=== PATIENT | male | born 1955 | race Caucasian/White ===

== ENCOUNTER → 2017-11-03 | Outpatient (CLI) | payer MEDICARE ==
[2017-11-03 09:44] LABS: ALT 29 U/L (21-72); AST 19 U/L (17-59); Cholesterol 174 mg/dL (<200); HDL Cholesterol 42 mg/dL (40-60); LDL Cholesterol,Calculated 106 mg/dL (0-99); Triglycerides 129 mg/dL (<150)
== END | disposition home or self-care (01) ==
LOC: LABWHC1 08:54
PROVIDERS: ATTEND Internal Medicine Cardiovascular Disease
DX: E78.2 Mixed hyperlipidemia (principal)
CPT/HCPCS: 36415; 80061; 84450; 84460

== ENCOUNTER 2018-06-13 11:39 | Emergency (ER) | payer MEDICARE ==
--- NOTE | 2018-06-13 12:52 | XR ---
EXAMINATION TYPE: XR KUB , 2 VIEWS DATE OF EXAM ORDERED: 06/13/2018 HISTORY: abdominal pain. COMPARISON: None. FINDINGS: There has been a midline sternotomy. The lung bases are clear. Within the abdomen, the abdominal gas pattern is within normal limits. There is no evidence of obstru ction or free air. No unusual calcifications are seen. There are mild degenerative changes in the lum bar spine. IMPRESSION: NO ACUTE INTRA-ABDOMINAL ABNORMALITY.
--- NOTE | 2018-06-13 12:58 | ED ---
Abdominal Pain HPI - General Chief Complaint: Abdominal Pain Stated Complaint: abd pain Time Seen by Provider: 06/13/18 12:02 Source: patient Mode of arrival: ambulatory Limitations: no limitations - History of Present Illness Initial Comments: This is 62-year-old male past medical history of coronary artery disease, previous MD, CVA, previous cholecystectomy and appendectomy, ventral hernia presenting today for cc of abdominal pain, nausea 2 weeks. Pt states that two weeks ago he began experiencing pain in his abdomen he stated it feels diffuse, and is a stabbing pa in that he is able to ease in certain positions. Pt states that the pain is mostly epigastric and radiates to the back at time. Pt denies vomiting, diarrhea, fever, night sweats, testicular pain, chest pain, shortness of breath, dyspnea upon exertion, urgency, frequency, hematuria, hematemesis or melena, hematochezia or any other associated symptoms. BP elevated upon arrival pt stated that he has not taken his BP medications yet today. - Related Data Allergies Allergy/AdvReac Type Severity Reaction Status Date / Time No Known Allergies Allergy Verified 06/13/18 11:51 Review of Systems ROS Statement: Those systems with pertinent positive or pertinent negative responses have been documented in the HPI. ROS Other: All systems not noted in ROS Statement are negative. Constitutional: Denies: fever, chills, night sweats Eyes: Denies: eye pain ENT: Denies: ear pain, throat pain Respiratory: Denies: cough, dyspnea, wheezes, hemoptysis, stridor Cardiovascular: Denies: chest pain, palpitations, dyspnea on exertion, orthopnea , edema, syncope Endocrine: Denies: fatigue Gastrointestinal: Reports: abdominal pain, nausea. Denies: vomiting, diarrhea, constipation, hematemesis, melena, hematochezia Genitourinary: Denies: urgency, dysuria, frequency, hematuria, discharge, testicular pain, testicular mass Musculoskeletal: Reports: as per HPI Skin: Denies: rash, lesions Neurological: Denies: headache, weakness, numbness, paresthesias, confusion, abnormal gait, vertigo Past Medical History Past Medical History: Coronary Artery Disease (CAD), Chest Pain / Angina, CVA/ TIA, Hyperlipidemia, Myocardial Infarction ([place]) History of Any Multi-Drug Resistant Organisms: None Reported Past Surgical History: Appendectomy, Cholecystectomy, Coronary Bypass/CABG Past Psychological History: No Psychological Hx Reported Smoking Status: Former smoker Past Alcohol Use History: None Reported Past Drug Use History: None Reported General Exam - General Exam Comments Initial Comments: General: The patient is awake and alert, in no distress, and does not appear acutely ill. Eye: Pupils are equal, round and reactive to light, extra-ocular movements are intact. No nystagmus. There is normal conjunctiva bilaterally. No signs of icterus. Ears, nose, mouth and throat: There are moist mucous membranes and no oral lesions. Neck: The neck is supple, there is no tenderness or JVD. Cardiovascular: There is a regular rate and rhythm. No murmur, rub or gallop is appreciated. Respiratory: Lungs are clear to auscultation, respirations are non-labored, breath sounds are equal. No wheezes, stridor, rales, or rhonchi. Gastrointestinal: Large scar over the RUQ, and large scared verticle down chest. Soft, non-distended, abdomen without masses or organomegaly noted. There is tenderness to palpation over the epigastric region with deep palpation. No tenderness to palpation on the lower quadrants, RUQ, LUQ umbilical regions. There is no rebound or guarding present. No CVA tenderness. Bowel sounds are unremarkable. There is a reducible ventral hernia-no pain to palpation. Musculoskeletal: Normal ROM, no tenderness. Strength 5/5. Sensation intact. Pulses equal bilaterally 2+. Neurological: A&O x 3. CN II-XII intact, There are no obvious motor or sensory deficits. Coordination appears grossly intact. Speech is normal. Skin: Skin is warm and dry and no rashes or lesions are noted. No LE edema Psychiatric: Cooperative, appropriate mood & affect, normal judgment. Limitations: no limitations Course Vital Signs 06/13/18 06/13/18 06/13/18 11:49 12:50 15:00 Temperature 98.6 F Pulse Rate 90 70 80 Respiratory 20 18 18 Rate Blood Pressure 199/93 190/101 200/91 O2 Sat by Pulse 98 96 96 Oximetry 06/13/18 16:11 Temperature 98.2 F Pulse Rate 78 Respiratory 18 Rate Blood Pressure 194/88 O2 Sat by Pulse 98 Oximetry Medical Decision Making - Medical Decision Making No clinical signs of acute mesenteric ischemia, lactic acid (-). Lab as stated above, within acceptable limits. CT abdomen pelvic revealed benign abdomen however there were multiple right lower lung nodules noted with associated lymphadenopathy. CT reviewed by myself and Dr. Solorzano. Pt given morphine for pain mgmt, pt states that he no longer has pain upon multiple reevaluations. Pt was informed of the lung nodules and we discussed that there is a risk of malignancy. Pt verbalized understanding. Pt has an appointment with a new primary care provider and states that he will f/u for the lung nodules. Given pt cardiac history as epigastric pain. 2 EKG obtained 2 hours apart and reviewed by myself and Dr. Solorzano. There does not appear to be acute changes concerning for ACS. Troponin (-), pt denies any cardiac symptoms. At this time it is not clear the etiology of the pain, pt does have some constipation on KUB and CT which could be attributing to pain. Pt last bowel movment was 3 days ago. Digits rectal exam performed with PAI GOW DEALER in room, (-) [place], no stool ball palpable. At this time I feel pt is stable for d/c with f/u for pulmonary nodules and return to the ER for worsening symptoms. Pt BP elevated after administration pt stated that he is ready for d/c and will f/u with primary care provider for BP management. Case discussed at length with Dr. Solorzano. Pt d /c in stable condition. - Lab Data Result diagrams: 06/13/18 12:57 06/13/18 12:57 Lab Results 06/13/18 06/13/18 06/13/18 Range/Units 12:57 12:57 12:57 WBC 9.4 (3.8-10.6) k/uL RBC 5.22 (4.30-5.90) m/uL Hgb 14.2 (13.0-17.5) gm/dL Hct 45.2 (39.0-53.0) % MCV 86.4 (80.0-100.0) fL MCH 27.2 (25.0-35.0) pg MCHC 31.5 (31.0-37.0) g/dL RDW 13.3 (11.5-15.5) % Plt Count 276 (150-450) k/uL Neutrophils % 73 % Lymphocytes % 13 % Monocytes % 7 % Eosinophils % 4 % Basophils % 1 % Neutrophils # 6.9 (1.3-7.7) k/uL Lymphocytes # 1.2 (1.0-4.8) k/uL Monocytes # 0.7 (0-1.0) k/uL Eosinophils # 0.4 (0-0.7) k/uL Basophils # 0.1 (0-0.2) k/uL Sodium 139 (137-145) mmol/L Potassium 4.5 (3.5-5.1) mmol/L Chloride 101 (98-107) mmol/L Carbon Dioxide 27 (22-30) mmol/L Anion Gap 11 mmol/L BUN 17 (9-20) mg/dL Creatinine 0.79 (0.66-1.25) mg/dL Est GFR (CKD-EPI)AfAm >90 (>60 ml/min/1.73 sqM) Est GFR (CKD-EPI)NonAf >90 (>60 ml/min/1.73 sqM) Glucose 111 H (74-99) mg/dL Plasma Lactic Acid Moy 1.1 (0.7-2.0) mmol/L Calcium 10.6 H (8.4-10.2) mg/dL Total Bilirubin 1.0 (0.2-1.3) mg/dL AST 27 (17-59) U/L ALT 29 (21-72) U/L Alkaline Phosphatase 149 H (38-126) U/L Troponin I (0.000-0.034) ng/mL Total Protein 7.8 (6.3-8.2) g/dL Albumin 4.5 (3.5-5.0) g/dL Amylase 59 (30-110) U/L Lipase 159 (23-300) U/L Urine Color Urine Appearance (Clear) Urine pH (5.0-8.0) Ur Specific [place] (1.001-1.035) Urine Protein (Negative) Urine Glucose (UA) (Negative) Urine Ketones (Negative) Urine Blood (Negative) Urine Nitrite (Negative) Urine Bilirubin (Negative) Urine Urobilinogen (<2.0) mg/dL Ur Leukocyte Esterase (Negative) 06/13/18 06/13/18 Range/Units 12:57 13:04 WBC (3.8-10.6) k/uL RBC (4.30-5.90) m/uL Hgb (13.0-17.5) gm/dL Hct (39.0-53.0) % MCV (80.0-100.0) fL MCH (25.0-35.0) pg MCHC (31.0-37.0) g/dL RDW (11.5-15.5) % Plt Count (150-450) k/uL Neutrophils % % Lymphocytes % % Monocytes % % Eosinophils % % Basophils % % Neutrophils # (1.3-7.7) k/uL Lymphocytes # (1.0-4.8) k/uL Monocytes # (0-1.0) k/uL Eosinophils # (0-0.7) k/uL Basophils # (0-0.2) k/uL Sodium (137-145) mmol/L Potassium (3.5-5.1) mmol/L Chloride (98-107) mmol/L Carbon Dioxide (22-30) mmol/L Anion Gap mmol/L BUN (9-20) mg/dL Creatinine (0.66-1.25) mg/dL Est GFR (CKD-EPI)AfAm (>60 ml/min/1.73 sqM) Est GFR (CKD-EPI)NonAf (>60 ml/min/1.73 sqM) Glucose (74-99) mg/dL Plasma Lactic Acid Moy (0.7-2.0) mmol/L Calcium (8.4-10.2) mg/dL Total Bilirubin (0.2-1.3) mg/dL AST (17-59) U/L ALT (21-72) U/L Alkaline Phosphatase (38-126) U/L Troponin I 0.020 (0.000-0.034) ng/mL Total Protein (6.3-8.2) g/dL Albumin (3.5-5.0) g/dL Amylase (30-110) U/L Lipase (23-300) U/L Urine Color Light Yellow Urine Appearance Clear (Clear) Urine pH 7.5 (5.0-8.0) Ur Specific [place] 1.007 (1.001-1.035) Urine Protein Negative (Negative) Urine Glucose (UA) Negative (Negative) Urine Ketones Negative (Negative) Urine Blood Negative (Negative) Urine Nitrite Negative (Negative) Urine Bilirubin Negative (Negative) Urine Urobilinogen <2.0 (<2.0) mg/dL Ur Leukocyte Esterase Negative (Negative) EKG 12:52 ventricular rate 76 bpm, GA interval 120 ms QRS duration 86 ms, QT/ QTc is 378/45 ms normal sinus rhythm, no ST elevation or depression. No suspicious T-wave inversion for acute coronary syndrome. Repeat EKG 14:24 ventricular rate is 69 bpm, GA interval 132 ms, QRS duration 86 most seconds, QT/QTC 384/411 normal sinus rhythm, no ST elevation or depression. No suspicious T-wave inversion for acute coronary syndrome. 06/13/18 21:21 Disposition Clinical Impression: Right lower lobe pulmonary nodule, Abdominal pain, Constipation Disposition: HOME SELF-CARE Condition: Good Instructions: Abdominal Pain (ED), Pulmonary Nodules (ED) Additional Instructions: Please use medication as discussed. Please follow-up with family doctor in the next 2 days for further follow-up and coordination of care for pulmonary nodules discussed. Please return to emergency room if the symptoms increase or worsen or for any other concerns, as discussed. Is patient prescribed a controlled substance at d/c from ED?: No Referrals: None,Stated [Primary Care Provider] - 1-2 days Paola Grimaldo MD [STAFF PHYSICIAN] - 1-2 days Time of Disposition: 15:05
[2018-06-13 13:20] LABS: Appearance,Urine Clear (Clear); Bilirubin,Urine Negative (Negative); Blood,Urine Negative (Negative); Color,Urine Light Yellow; Glucose,Urine (UA) Negative (Negative); Ketones,Urine Negative (Negative); Leukocyte Esterase,Urine Negative (Negative); Nitrite,Urine Negative (Negative); PH, Urine 7.5 (5.0-8.0); Protein,Urine Negative (Negative); Specific Gravity,Urine 1.007 (1.001-1.035); Urobilinogen,Urine <2.0 mg/dL (<2.0)
[2018-06-13 13:21] LABS: Basophils # (A) 0.1 k/uL (0-0.2); Basophils % (A) 1 %; Eosinophils # (A) 0.4 k/uL (0-0.7); Eosinophils % (A) 4 %; HCT 45.2 % (39.0-53.0); HGB 14.2 gm/dL (13.0-17.5); Lymphocytes # (A) 1.2 k/uL (1.0-4.8); Lymphocytes % (A) 13 %; MCH 27.2 pg (25.0-35.0); MCHC 31.5 g/dL (31.0-37.0); MCV 86.4 fL (80.0-100.0); Mean Platelet Volume 7.6; Monocytes # (A) 0.7 k/uL (0-1.0); Monocytes % (A) 7 %; Neutrophils # (A) 6.9 k/uL (1.3-7.7); Neutrophils % (A) 73 %; Platelet Count 276 k/uL (150-450); RBC 5.22 m/uL (4.30-5.90); RDW 13.3 % (11.5-15.5); WBC 9.4 k/uL (3.8-10.6)
[2018-06-13 13:27] LABS: ALT 29 U/L (21-72); AST 27 U/L (17-59); Albumin 4.5 g/dL (3.5-5.0); Alkaline Phosphatase 149 U/L (38-126); Amylase 59 U/L (30-110); Anion Gap 11 mmol/L; Blood Urea Nitrogen 17 mg/dL (9-20); Calcium 10.6 mg/dL (8.4-10.2); Carbon Dioxide 27 mmol/L (22-30); Chloride 101 mmol/L (98-107); Glucose 111 mg/dL (74-99); Lipase 159 U/L (23-300); Potassium 4.5 mmol/L (3.5-5.1); Sodium 139 mmol/L (137-145); Total Protein 7.8 g/dL (6.3-8.2)
[2018-06-13] MEDS ORDERED: MORPHINE SULFATE 2 MG/ML SYRINGE IVP STA (13:54)
--- NOTE | 2018-06-13 14:29 | CT ---
EXAMINATION TYPE: CT abdomen pelvis w con DATE OF EXAM: 06/13/2018 COMPARISON: Abdominal radiograph 06/13/2018 HISTORY: Abdominal pain CT DLP: 1594 mGycm Automated exposure control for dose reduction was used. TECHNIQUE: Helical acquisition of images was performed from the lung bases through the pelvis. CONTRAST: Alert cc of Isovue-300. FINDINGS: LUNG BASES: 1.6 cm noncalcified pulmonary nodule in the right lung base. An additional pleural-based nodule is seen in the right lung base measures up to 1.5 cm. An additional 5 mm nodule is present in the right lung base. LIVER/GB: No significant abnormality is appreciated. The gallbladder not well visualized and may be s urgically absent. PANCREAS: No significant abnormality is seen. SPLEEN: No significant abnormality is seen. ADRENALS: No significant abnormality is seen. KIDNEYS: No significant abnormality is seen. Right superior pole signal renal cyst. No hydronephrosis or hydroureter. FREE AIR: No free air is visualized. RETROPERITONEAL ADENOPATHY: Multiple prominent and enlarged periaortic and pericaval lymph nodes are present. The largest discrete node measures up to 1.8 cm and is seen just inferior to the origin of the superior mesenteric artery (axial series image 32). Additional conglomerate abnormal soft tissue attenuation is noted just superior to the celiac trunk which measures up to 3.0 x 2.6 cm (axial serie s image 20). No enlarged lymph nodes in the pelvis. REPRODUCTIVE ORGANS: No significant abnormality is seen URINARY BLADDER: No significant abnormality is seen. OSSEOUS STRUCTURES: No significant abnormality is seen. No suspicious osseous lesions. BOWEL: No significant abnormality is seen. OTHER: Bilateral common iliac artery stents are seen. IMPRESSION: 1. Enlarged periaortic and pericaval lymph nodes with a conglomerate soft tissue mass also favored to represent adenopathy near the celiac axis. This may reflect infectious or malignant etiologies. 2. Multiple right lower lobe lung nodules. Given the findings in the upper abdomen, malignancy should be excluded.
[2018-06-13] MEDS ORDERED: LISINOPRIL 20 MG TAB PO STA (15:05)
[2018-06-13 15:27] VITALS: RESP 18
[2018-06-13 16:13] VITALS: BP 194/88; PULSE 78; TEMP 98.2
== END 2018-06-13 16:14 | disposition home or self-care (01) ==
LOC: EC 11:39
DX: K59.00 Constipation, unspecified (principal); R91.1 Solitary pulmonary nodule; I25.119 Atherosclerotic heart disease of native coronary artery with unspecified angina pectoris; I25.2 Old myocardial infarction; Z86.73 Personal history of transient ischemic attack (TIA), and cerebral infarction without residual deficits; Z87.891 Personal history of nicotine dependence; Z95.1 Presence of aortocoronary bypass graft
CPT/HCPCS: 36415; 93005; 80053; 82150; 83605; 83690; 84484; 85025; 81003; 74018; 74177; 99284; 96374; J2270; Q9967

== ENCOUNTER → 2018-06-27 | Outpatient (CLI) | payer MEDICARE ==
--- NOTE | 2018-06-29 11:52 | PE ---
Nuclear medicine PET/CT HISTORY: Pulmonary nodule, initial Patient received 11.7 mCi in delayed scanning was performed from the skull base to the mid thighs. Lo calization and attenuation correction CT scan was performed. Correlation CT abdomen pelvis 06/13/2018 Neck and Chest: No evident cervical adenopathy. No supraclavicular adenopathy. Calcified right hilar nodes are present. Shotty nodes present within the mediastinum, calcified node in the retrocaval pret goran mediastinum. Patient is post median sternotomy. Coronary artery best calcifications are prese nt. No pleural or pericardial effusion. Nodular densities in the right lower lobe are again noted, ap proximately 4-5 nodules present. Right middle lobe lung nodule also present, SUV values approximately 3.5 in the right middle lobe, 7.5 in the right lower lobe with the largest nodule medially which is pleural-based as well as smaller nodules measuring SUV 2.6, 3.1 in the right lower lobe. Right hilar node shows an SUV of only 3.3. ABDOMEN and pelvis: The retroperitoneal adenopathy, mass at the level of the origin of the celiac axi s and superior mesenteric artery shows SUV 12.8. Focus of uptake seen associated with the right colon shows an SUV value of 7.6. Additional retroperitoneal nodes present shows an SUV value 6.4 along the level between the aorta and inferior vena cava. Small node at the level along the posterior margin o f the pancreas in the retroperitoneal location shows an SUV value of only 2.1. No pelvic adenopathy. Scattered calcifications present within the liver and spleen. Osseous structures are unremarkable. IMPRESSION: Findings suggest metastatic disease. Consider bowel surveillance if this has not been per formed. Old granulomatous disease.
== END | disposition home or self-care (01) ==
LOC: RADPETMAIN 10:05
PROVIDERS: ATTEND Internal Medicine
DX: R91.1 Solitary pulmonary nodule (principal)
CPT/HCPCS: 78815; A9552

== ENCOUNTER 2018-06-29 22:15 | Emergency (ER) | payer MEDICARE ==
[2018-06-29] MEDS ORDERED: SODIUM CHLORIDE 0.9% 1,000 ML IV STA ×3 (22:17→23:21)
[2018-06-29] MEDS ORDERED: LABETALOL 5 MG/ML VIAL MDV IVP STA ×2 (22:18→22:47)
[2018-06-29] MEDS ORDERED: HYDROmorphone 1 MG/ML 1 ML SYRINGE IVP STA ×2 (22:18→22:47)
[2018-06-29 22:21] VITALS: TEMP 98
--- NOTE | 2018-06-29 22:22 | ED ---
General Adult HPI - General Stated complaint: weakness Time Seen by Provider: 06/29/18 22:17 Source: RN notes reviewed, old records reviewed Mode of arrival: EMS - History of Present Illness Initial comments: This is a 62-year-old male the ER for evaluation today. Patient comes in with severe pain to his back pelvis groin bilateral lower extremities. Patient has a significant history of heart disease on Plavix no other blood thinners. No trauma or other injury. Patient does admit to underlying hypertension. Patient 's been taking all medications as prescribed without 2 hours prior to calling EMS patient severe pain both legs. Pain with significant worsening. EMS states patient is legs and is called with no pulse, patient is again complaining of significant bilateral lower Shorty pain MD Complaint: Severe bilateral lower Shorty pain -: hour(s) (2) Location: left, right, lower extremity Radiation: extremity, abdomen, flank Severity scale (1-10): 10 Quality: burning, sharp Consistency: constant Improves with: none Worsens with: none Associated Symptoms: denies other symptoms Treatments Prior to Arrival: none - Related Data Home Medications Medication Instructions Recorded Confirmed Acetaminophen [Tylenol] 500 mg PO Q4-6H PRN 06/29/18 06/29/18 Atorvastatin [Lipitor] 80 mg PO DAILY 06/29/18 06/29/18 Clopidogrel Bisulfate [Plavix] 75 mg PO HS 06/29/18 06/29/18 Furosemide [Lasix] 40 mg PO DAILY 06/29/18 06/29/18 Isosorbide Dinitrate 10 mg PO HS 06/29/18 06/29/18 Lisinopril [Zestril] 40 mg PO DAILY 06/29/18 06/29/18 Metoprolol Succinate (ER) [Toprol 25 mg PO DAILY 06/29/18 06/29/18 Xl] Omeprazole [PriLOSEC] 40 mg PO DAILY 06/29/18 06/29/18 traMADol HCL [Ultram] 50 mg PO Q6H PRN 06/29/18 06/29/18 Allergies Allergy/AdvReac Type Severity Reaction Status Date / Time No Known Allergies Allergy Verified 06/29/18 22:57 Review of Systems ROS Statement: Those systems with pertinent positive or pertinent negative responses have been documented in the HPI. ROS Other: All systems not noted in ROS Statement are negative. Past Medical History Past Medical History: Coronary Artery Disease (CAD), Chest Pain / Angina, CVA/ TIA, Hyperlipidemia, Myocardial Infarction ([place]) History of Any Multi-Drug Resistant Organisms: None Reported Past Surgical History: Appendectomy, Cholecystectomy, Coronary Bypass/CABG Past Psychological History: No Psychological Hx Reported Smoking Status: Former smoker Past Alcohol Use History: None Reported Past Drug Use History: None Reported General Exam General appearance: alert, anxious, in distress Head exam: Present: atraumatic, normocephalic, normal inspection Eye exam: Present: normal appearance, PERRL, EOMI. Absent: scleral icterus, conjunctival injection, periorbital swelling ENT exam: Present: normal exam, mucous membranes moist Neck exam: Present: normal inspection. Absent: tenderness, meningismus, lymphadenopathy Respiratory exam: Present: normal lung sounds bilaterally. Absent: respiratory distress, wheezes, rales, rhonchi, stridor Cardiovascular Exam: Present: regular rate, normal rhythm, normal heart sounds. Absent: systolic murmur, diastolic murmur, rubs, gallop, clicks GI/Abdominal exam: Present: soft, normal bowel sounds. Absent: distended, tenderness, guarding, rebound, rigid Extremities exam: Present: other (Patient has no capillary refill bilateral feet , bilateral legs are pale from waist down, no palpable pulse, no Doppler pulse bilateral, faint femoral pulse). Absent: tenderness, pedal edema, joint swelling, calf tenderness Back exam: Present: normal inspection Neurological exam: Present: alert, oriented X3, CN II-XII intact Psychiatric exam: Present: normal affect, normal mood Skin exam: Present: warm, dry, intact, normal color. Absent: rash Course Vital Signs 06/29/18 06/29/18 06/29/18 22:17 22:50 23:10 Temperature 98.0 F Pulse Rate 106 H 89 86 Respiratory 22 18 20 Rate Blood Pressure 220/110 210/96 208/102 O2 Sat by Pulse 99 99 95 Oximetry 06/29/18 06/29/18 06/29/18 23:13 23:20 23:36 Temperature Pulse Rate 83 83 84 Respiratory 18 18 18 Rate Blood Pressure 206/93 199/91 192/94 O2 Sat by Pulse 97 95 98 Oximetry - Reevaluation(s) Reevaluation #1: 06/29/18 22:21 Medical record and medical history is reviewed Reevaluation #2: 06/29/18 22:21 Patient's pain is mildly improved a controlled Reevaluation #3: 06/29/18 22:48 Patient is started on heparin, family at bedside, will family and patient updated on findings of patients status and severe condition 06/29/18 22:49 EKG Findings - EKG Comments: EKG Findings:: EKG shows sinus tachycardia rate of 104, DE 120, QRS 90, QTc 497 Medical Decision Making - Medical Decision Making 62 male the ER for evaluation, patient resents today for evaluation regards to severe lower extremity pain bilateral lower extremity pain and no palpable pulses. Patient has bilateral arterial occlusion. Started on heparin - Lab Data Result diagrams: 06/29/18 22:23 06/29/18 22:23 Lab Results 06/29/18 06/29/18 06/29/18 Range/Units 22:23 22:23 22:23 WBC 12.9 H (3.8-10.6) k/uL RBC 4.76 (4.30-5.90) m/uL Hgb 13.2 (13.0-17.5) gm/dL Hct 39.6 (39.0-53.0) % MCV 83.1 (80.0-100.0) fL MCH 27.7 (25.0-35.0) pg MCHC 33.4 (31.0-37.0) g/dL RDW 13.5 (11.5-15.5) % Plt Count 302 (150-450) k/uL Neutrophils % 66 % Lymphocytes % 18 % Monocytes % 8 % Eosinophils % 5 % Basophils % 1 % Neutrophils # 8.4 H (1.3-7.7) k/uL Lymphocytes # 2.3 (1.0-4.8) k/uL Monocytes # 1.1 H (0-1.0) k/uL Eosinophils # 0.6 (0-0.7) k/uL Basophils # 0.1 (0-0.2) k/uL PT (9.0-12.0) sec INR (<1.2) APTT (22.0-30.0) sec D-Dimer (<0.60) mg/L FEU Sodium 135 L (137-145) mmol/L Potassium 3.9 (3.5-5.1) mmol/L Chloride 101 (98-107) mmol/L Carbon Dioxide 16 L (22-30) mmol/L Anion Gap 18 mmol/L BUN 25 H (9-20) mg/dL Creatinine 0.94 (0.66-1.25) mg/dL Est GFR (CKD-EPI)AfAm >90 (>60 ml/min/1.73 sqM) Est GFR (CKD-EPI)NonAf 86 (>60 ml/min/1.73 sqM) Glucose 166 H (74-99) mg/dL POC Glucose (mg/dL) (75-99) mg/dL POC Glu Nuclear Process Engineer ID Plasma Lactic Acid Moy (0.7-2.0) mmol/L Calcium 10.5 H (8.4-10.2) mg/dL Phosphorus 4.2 (2.5-4.5) mg/dL Magnesium 1.8 (1.6-2.3) mg/dL Total Bilirubin 0.8 (0.2-1.3) mg/dL AST 22 (17-59) U/L ALT 24 (21-72) U/L Alkaline Phosphatase 138 H (38-126) U/L Total Creatine Kinase 68 (55-170) U/L CK-MB (CK-2) 0.9 (0.0-2.4) ng/mL CK-MB (CK-2) Rel Index 1.3 Troponin I <0.012 (0.000-0.034) ng/mL Total Protein 6.9 (6.3-8.2) g/dL Albumin 4.1 (3.5-5.0) g/dL 06/29/18 06/29/18 06/29/18 Range/Units 22:23 22:23 22:24 WBC (3.8-10.6) k/uL RBC (4.30-5.90) m/uL Hgb (13.0-17.5) gm/dL Hct (39.0-53.0) % MCV (80.0-100.0) fL MCH (25.0-35.0) pg MCHC (31.0-37.0) g/dL RDW (11.5-15.5) % Plt Count (150-450) k/uL Neutrophils % % Lymphocytes % % Monocytes % % Eosinophils % % Basophils % % Neutrophils # (1.3-7.7) k/uL Lymphocytes # (1.0-4.8) k/uL Monocytes # (0-1.0) k/uL Eosinophils # (0-0.7) k/uL Basophils # (0-0.2) k/uL PT 10.8 (9.0-12.0) sec INR 1.1 (<1.2) APTT 20.0 L (22.0-30.0) sec D-Dimer 0.98 H (<0.60) mg/L FEU Sodium (137-145) mmol/L Potassium (3.5-5.1) mmol/L Chloride (98-107) mmol/L Carbon Dioxide (22-30) mmol/L Anion Gap mmol/L BUN (9-20) mg/dL Creatinine (0.66-1.25) mg/dL Est GFR (CKD-EPI)AfAm (>60 ml/min/1.73 sqM) Est GFR (CKD-EPI)NonAf (>60 ml/min/1.73 sqM) Glucose (74-99) mg/dL POC Glucose (mg/dL) 162 H (75-99) mg/dL POC Glu Nuclear Process Engineer ID William Jackson Plasma Lactic Acid Moy 7.5 H* (0.7-2.0) mmol/L Calcium (8.4-10.2) mg/dL Phosphorus (2.5-4.5) mg/dL Magnesium (1.6-2.3) mg/dL Total Bilirubin (0.2-1.3) mg/dL AST (17-59) U/L ALT (21-72) U/L Alkaline Phosphatase (38-126) U/L Total Creatine Kinase (55-170) U/L CK-MB (CK-2) (0.0-2.4) ng/mL CK-MB (CK-2) Rel Index Troponin I (0.000-0.034) ng/mL Total Protein (6.3-8.2) g/dL Albumin (3.5-5.0) g/dL - Radiology Data Radiology results: report reviewed (CT angio Aorta - thoracic abdominal pelvic aorta with runoff bilateral lower extremity), image reviewed Critical Care Time Critical Care Time: Yes Total Critical Care Time: 31 Disposition Clinical Impression: Arterial occlusion Narrative: Bilateral Lower Extremity Arterial OCclusion Disposition: OTHER INSTITUTION NOT DEFINED Condition: Critical Is patient prescribed a controlled substance at d/c from ED?: No Referrals: Nonstaff,Physician [REFERRING] - 1-2 days - Out of Hospital Transfer - Req. Specs Out of Hospital Transfer - Requested Specifics: Other Emergency Center ([facility])
[2018-06-29 22:27] LABS: Glucose,Whole Blood 162 mg/dL (75-99)
[2018-06-29 22:34] LABS: Basophils # (A) 0.1 k/uL (0-0.2); Basophils % (A) 1 %; Eosinophils # (A) 0.6 k/uL (0-0.7); Eosinophils % (A) 5 %; HCT 39.6 % (39.0-53.0); HGB 13.2 gm/dL (13.0-17.5); Lymphocytes # (A) 2.3 k/uL (1.0-4.8); Lymphocytes % (A) 18 %; MCH 27.7 pg (25.0-35.0); MCHC 33.4 g/dL (31.0-37.0); MCV 83.1 fL (80.0-100.0); Monocytes # (A) 1.1 k/uL (0-1.0); Monocytes % (A) 8 %; Neutrophils # (A) 8.4 k/uL (1.3-7.7); Neutrophils % (A) 66 %; Platelet Count 302 k/uL (150-450); RBC 4.76 m/uL (4.30-5.90); RDW 13.5 % (11.5-15.5); WBC 12.9 k/uL (3.8-10.6)
[2018-06-29 22:43] LABS: ALT 24 U/L (21-72); AST 22 U/L (17-59); Albumin 4.1 g/dL (3.5-5.0); Alkaline Phosphatase 138 U/L (38-126); Anion Gap 18 mmol/L; Blood Urea Nitrogen 25 mg/dL (9-20); Calcium 10.5 mg/dL (8.4-10.2); Carbon Dioxide 16 mmol/L (22-30); Chloride 101 mmol/L (98-107); Glucose 166 mg/dL (74-99); Magnesium 1.8 mg/dL (1.6-2.3); Phosphorus 4.2 mg/dL (2.5-4.5); Potassium 3.9 mmol/L (3.5-5.1); Sodium 135 mmol/L (137-145); Total Bilirubin 0.8 mg/dL (0.2-1.3); Total Protein 6.9 g/dL (6.3-8.2)
[2018-06-29] MEDS ORDERED: HYDROmorphone 1 MG/ML 1 ML SYRINGE IVP PRN (22:47)
[2018-06-29] MEDS ORDERED: LORazepam 2 MG/ML INJ IV STA (22:47)
[2018-06-29] MEDS ORDERED: HEPARIN SODIUM,PORCINE 5,000 UNIT/ML 1 ML VIAL IV PRN (22:47)
[2018-06-29] MEDS ORDERED: HEPARIN SODIUM,PORCINE 5,000 UNIT/ML 1 ML VIAL IV ONE (22:47)
[2018-06-29 22:53] LABS: INR 1.1 (<1.2); Prothrombin Time 10.8 sec (9.0-12.0)
[2018-06-29 22:56] LABS: Creatine Kinase 68 U/L (55-170)
[2018-06-29 22:58] LABS: D-Dimer 0.98 mg/L FEU (<0.60)
[2018-06-29] MEDS ORDERED: HEPARIN SOD,PORK IN 0.45% NACL 25,000 UNIT in 0.45% NACL 1 500ML.BAG IV SCH (23:00)
[2018-06-29 23:07] LABS: Creatine Kinase MB 0.9 ng/mL (0.0-2.4); Troponin I <0.012 ng/mL (0.000-0.034)
--- NOTE | 2018-06-29 23:22 | CT ---
CT angiogram of the thoracic and abdominal aorta with runoff. History bilateral leg numbness and weakness. Comparison none. TECHNIQUE: Multiple axial sections were obtained from the level of the aortic arch to the bottom of the feet wit h intravenous contrast. The contrast was Isovue 100 mL. There are 3-D post processed images. FINDINGS: The lungs are clear of consolidation. There is minimal pleural thickening in the right paraspinal rig ht lower lobe. Thoracic aorta is intact without evidence of aneurysm or dissection. There is atheroma tous change in the thoracic aorta. I see no filling defects in the pulmonary arteries. Abdominal aorta is atheromatous. There is a short segment of dissection on the posterior right latera l wall of the lower abdominal aorta with lumen narrowing 40%. There is patency of the celiac artery a nd superior mesenteric artery. There is bilateral patency of the renal arteries. There is 3 cm cyst a nterior upper pole right kidney. There is no hydronephrosis. There is aorto iliac stent. There is no contrast seen flowing through the aortic component of the [place] nt. I see no contrast in the right common iliac artery. There is a tiny amount of contrast in the lef t common iliac artery. There is extensive plaque formation in the iliac arteries. There is some contr ast seen in the proximal right femoral artery which shows diffuse plaque. There is arterial flow in t he left femoral artery with extensive plaque formation. The lumen is narrowed more than 50%. I see no contrast in the mid and distal right femoral artery. There is profunda femoris artery flow on the ri ght side down to the thigh. There is variable atherosclerotic vascular calcification at the knee and right lower leg. I see no contrast opacification of any arteries below the right knee. There is small left femoral artery. The left femoral artery appears completely occluded at the lower thigh between middle and distal thirds of the femur. There is no contrast opacification of the poplit eal or tibial arteries bilaterally. Bladder distends smoothly. There is no inguinal hernia. There is no ascites. There is no sign of free air. I see no intestinal wall thickening. There are no dilated loops. Liver spleen pancreas appear n ormal. Bile ducts are not dilated. IMPRESSION: Atherosclerotic vascular disease. 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 There is tiny amount of collateral flow ace polly the femoral arteries. 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 Extensive atherosclerotic plaque formation in the iliac and femoral arteries .
[2018-06-29 23:37] VITALS: PULSE 84
[2018-06-30 00:11] VITALS: BP 207/94; RESP 16
== END 2018-06-30 00:08 | disposition other institution (70) ==
LOC: EC 22:15
DX: I70.203 Unspecified atherosclerosis of native arteries of extremities, bilateral legs (principal); I11.9 Hypertensive heart disease without heart failure; I25.10 Atherosclerotic heart disease of native coronary artery without angina pectoris; E78.5 Hyperlipidemia, unspecified; I25.2 Old myocardial infarction; Z86.73 Personal history of transient ischemic attack (TIA), and cerebral infarction without residual deficits; Z90.49 Acquired absence of other specified parts of digestive tract; Z95.1 Presence of aortocoronary bypass graft; Z87.891 Personal history of nicotine dependence; Z79.02 Long term (current) use of antithrombotics/antiplatelets; Z79.899 Other long term (current) drug therapy
CPT/HCPCS: 99291; 96365; 96375 ×3; 96376 ×3; 96361 ×2; 36415; 93005; 85379; 80053; 82550; 82553; 83605; 83735; 84100; 84484; 85025; 85610; 85730; 75635; 71275; J2060; J1644 ×2; J1170; Q9967

== ENCOUNTER 2018-07-04 08:00 | Emergency (ER) | payer MEDICARE ==
[2018-07-04] MEDS ORDERED: SODIUM CHLORIDE 0.9% 2,000 ML IV ONE (08:11)
--- NOTE | 2018-07-04 08:17 | ED ---
General Adult HPI - General Source: patient, EMS, RN notes reviewed Mode of arrival: EMS Limitations: no limitations <Corey Do - Last Filed: 07/04/18 08:44> <Jaime Gee - Last Filed: 07/04/18 09:29> - General Stated complaint: shoulder dislocation Time Seen by Provider: 07/04/18 08:05 - History of Present Illness Initial comments: This a 62-year-old male presents emergency department via EMS chief complaint of left shoulder pain, back pain and leg pain. Patient states he had aortic bypass surgery [address] Milligan. Patient states he was seen in this emergency Department and transferred down to [facility] because he had an occlusion of his aortic iliac stent. Patient states he rolled over felt a pop on his left shoulder region where his incision is. He states that he became very diaphoretic not feeling well. Patient's states that he now has low back pain and extreme pain in his legs. Patient denies any nausea vomiting denies any chest pain. Patient states he feels very weak at this time. (Corey Do) - Related Data Home Medications Medication Instructions Recorded Confirmed Acetaminophen [Tylenol] 500 mg PO Q4-6H PRN 06/29/18 06/29/18 Atorvastatin [Lipitor] 80 mg PO DAILY 06/29/18 06/29/18 Clopidogrel Bisulfate [Plavix] 75 mg PO HS 06/29/18 06/29/18 Furosemide [Lasix] 40 mg PO DAILY 06/29/18 06/29/18 Isosorbide Dinitrate 10 mg PO HS 06/29/18 06/29/18 Lisinopril [Zestril] 40 mg PO DAILY 06/29/18 06/29/18 Metoprolol Succinate (ER) [Toprol 25 mg PO DAILY 06/29/18 06/29/18 Xl] Omeprazole [PriLOSEC] 40 mg PO DAILY 06/29/18 06/29/18 traMADol HCL [Ultram] 50 mg PO Q6H PRN 06/29/18 06/29/18 Allergies Allergy/AdvReac Type Severity Reaction Status Date / Time No Known Allergies Allergy Verified 06/29/18 22:57 Review of Systems ROS Other: All systems not noted in ROS Statement are negative. <Corey Do - Last Filed: 07/04/18 08:44> ROS Other: All systems not noted in ROS Statement are negative. <GeeJaime - Last Filed: 07/04/18 09:29> ROS Statement: Those systems with pertinent positive or pertinent negative responses have been documented in the HPI. Past Medical History Past Medical History: Coronary Artery Disease (CAD), Chest Pain / Angina, CVA/ TIA, Hyperlipidemia, Myocardial Infarction (MD) History of Any Multi-Drug Resistant Organisms: None Reported Past Surgical History: Appendectomy, Cholecystectomy, Coronary Bypass/CABG Past Psychological History: No Psychological Hx Reported Smoking Status: Former smoker Past Alcohol Use History: None Reported Past Drug Use History: None Reported <Corey Do M - Last Filed: 07/04/18 08:44> General Exam General appearance: alert, in no apparent distress, lethargic Head exam: Present: atraumatic, normocephalic, normal inspection Neck exam: Present: normal inspection, full ROM. Absent: tenderness, meningismus, lymphadenopathy Respiratory exam: Present: normal lung sounds bilaterally, other (Incision over the left anterior chest wall, swollen, tender with palpation). Absent: respiratory distress, wheezes, rales, rhonchi, stridor Cardiovascular Exam: Present: normal rhythm, tachycardia, normal heart sounds. Absent: regular rate, systolic murmur, diastolic murmur, rubs, gallop, clicks GI/Abdominal exam: Present: soft, tenderness (Mild), normal bowel sounds. Absent: distended, guarding, rebound, rigid Extremities exam: Present: other (No pulses palpable of the lower extremity, pale and cool to the touch, no pulses with Doppler) Neurological exam: Present: alert, oriented X3, CN II-XII intact Skin exam: Present: warm, diaphoretic <Corey Do - Last Filed: 07/04/18 08:44> Vital Signs 07/04/18 07/04/18 07/04/18 08:14 08:20 08:31 Temperature 98.7 F Pulse Rate 126 H 115 H Respiratory 17 Rate Blood Pressure 94/64 68/42 EKG Findings - EKG Comments: EKG Findings:: EKG performed a: 12 sinus tachycardia with a rate of 131 ID 96 QRS 76 QT/QTC 292/431 <Corey Do M - Last Filed: 07/04/18 08:44> Medical Decision Making - Lab Data Result diagrams: 07/04/18 08:15 07/04/18 08:15 <Corey Do - Last Filed: 07/04/18 08:44> - Lab Data Result diagrams: 07/04/18 08:15 07/04/18 08:15 <Jaime Gee - Last Filed: 07/04/18 09:29> - Medical Decision Making Dr. Gee did discuss case with Dr. Milligan. Patient will be transferred stat to [facility]. Patient we given him 2 units of blood at this time. Patient was given fluids. Patient has concerning symptoms for dissection/ separation of graft. Patient has lower limb ischemia, back pain. Patient presents with symptoms consistent with dissection. (Corey Do) I, Twin Gee, personally saw and examined the patient. I have reviewed and agree with the PA findings, including all diagnostic interpretations and treatment plans as written unless otherwise stated. I was present for the cox portions of any procedures performed and the inclusive time noted for any critical care statement. I spoke with the vascular surgeon at [facility] and he wanted the patient transferred immediately. I spoke with the ER doc and the patient was accepted to the emergency department. We started 2 units of packed blood cells prior to patient leaving blood was O-. A third unit was given 2 EMS to give if the first 2 units were in prior to the patient arriving at [facility]. Patient 's blood pressure dropped just prior to leaving and the decision was made to ship the patient as soon as possible even with a low blood pressure because blood was running and he had already received 1 L fluid in with the patient needed most with surgery and that was not going to occur at [facility]. I spoke with the emergency department doctor after the patient was discharged from formal the low blood pressure. (Jaime Gee) - Lab Data Lab Results 07/04/18 07/04/18 07/04/18 Range/Units 08:15 08:15 08:15 WBC 17.4 H (3.8-10.6) k/uL RBC 3.16 L (4.30-5.90) m/uL Hgb 8.8 L D (13.0-17.5) gm/dL Hct 27.3 L (39.0-53.0) % MCV 86.6 (80.0-100.0) fL MCH 28.0 (25.0-35.0) pg MCHC 32.4 (31.0-37.0) g/dL RDW 13.6 (11.5-15.5) % Plt Count 272 (150-450) k/uL Neutrophils % 82 % Lymphocytes % 11 % Monocytes % 4 % Eosinophils % 2 % Basophils % 1 % Neutrophils # 14.2 H (1.3-7.7) k/uL Lymphocytes # 1.9 (1.0-4.8) k/uL Monocytes # 0.7 (0-1.0) k/uL Eosinophils # 0.4 (0-0.7) k/uL Basophils # 0.1 (0-0.2) k/uL PT (9.0-12.0) sec INR (<1.2) APTT (22.0-30.0) sec Sodium (137-145) mmol/L Potassium (3.5-5.1) mmol/L Chloride (98-107) mmol/L Carbon Dioxide (22-30) mmol/L Anion Gap mmol/L BUN (9-20) mg/dL Creatinine (0.66-1.25) mg/dL Est GFR (CKD-EPI)AfAm (>60 ml/min/1.73 sqM) Est GFR (CKD-EPI)NonAf (>60 ml/min/1.73 sqM) Glucose (74-99) mg/dL Calcium (8.4-10.2) mg/dL Magnesium (1.6-2.3) mg/dL Total Bilirubin (0.2-1.3) mg/dL AST (17-59) U/L ALT (21-72) U/L Alkaline Phosphatase (38-126) U/L Total Creatine Kinase 2284 H* (55-170) U/L CK-MB (CK-2) 6.1 H (0.0-2.4) ng/mL CK-MB (CK-2) Rel Index Troponin I 0.414 H* (0.000-0.034) ng/mL Total Protein (6.3-8.2) g/dL Albumin (3.5-5.0) g/dL Blood Type O Positive Blood Type Recheck CABO Indicated Antibody Screen NEGATIVE Spec Expiration Date 07/07/2018 - 231407/04/18 07/04/18 Range/Units 08:15 08:15 WBC (3.8-10.6) k/uL RBC (4.30-5.90) m/uL Hgb (13.0-17.5) gm/dL Hct (39.0-53.0) % MCV (80.0-100.0) fL MCH (25.0-35.0) pg MCHC (31.0-37.0) g/dL RDW (11.5-15.5) % Plt Count (150-450) k/uL Neutrophils % % Lymphocytes % % Monocytes % % Eosinophils % % Basophils % % Neutrophils # (1.3-7.7) k/uL Lymphocytes # (1.0-4.8) k/uL Monocytes # (0-1.0) k/uL Eosinophils # (0-0.7) k/uL Basophils # (0-0.2) k/uL PT 10.9 (9.0-12.0) sec INR 1.1 (<1.2) APTT 20.4 L (22.0-30.0) sec Sodium 136 L (137-145) mmol/L Potassium 4.5 (3.5-5.1) mmol/L Chloride 101 (98-107) mmol/L Carbon Dioxide 20 L (22-30) mmol/L Anion Gap 15 mmol/L BUN 19 (9-20) mg/dL Creatinine 1.02 (0.66-1.25) mg/dL Est GFR (CKD-EPI)AfAm 90 (>60 ml/min/1.73 sqM) Est GFR (CKD-EPI)NonAf 78 (>60 ml/min/1.73 sqM) Glucose 310 H (74-99) mg/dL Calcium 9.3 (8.4-10.2) mg/dL Magnesium 2.0 (1.6-2.3) mg/dL Total Bilirubin 0.7 (0.2-1.3) mg/dL AST 231 H (17-59) U/L ALT 89 H (21-72) U/L Alkaline Phosphatase 87 (38-126) U/L Total Creatine Kinase (55-170) U/L CK-MB (CK-2) (0.0-2.4) ng/mL CK-MB (CK-2) Rel Index Troponin I (0.000-0.034) ng/mL Total Protein 4.8 L (6.3-8.2) g/dL Albumin 2.5 L (3.5-5.0) g/dL Blood Type Blood Type Recheck Antibody Screen Spec Expiration Date Critical Care Time Critical Care Time: Yes Total Critical Care Time: 35 <Jaime Gee - Last Filed: 07/04/18 09:29> Disposition - Out of Hospital Transfer - Req. Specs Out of Hospital Transfer - Requested Specifics: Other Emergency Center ( [facility]) <Corey Do - Last Filed: 07/04/18 08:44> <Jaime Gee - Last Filed: 07/04/18 09:29> Clinical Impression: Back pain, Lower limb ischemia, Status post aorta repair Narrative: Suspected aortic dissection (Corey Do) Disposition: OTHER INSTITUTION NOT DEFINED Referrals: Albert Plummer MD [Primary Care Provider] - 1-2 days
[2018-07-04 08:19] VITALS: RESP 17; TEMP 98.7
[2018-07-04 08:29] VITALS: BP 68/42
[2018-07-04 08:35] LABS: Basophils # (A) 0.1 k/uL (0-0.2); Basophils % (A) 1 %; Eosinophils # (A) 0.4 k/uL (0-0.7); Eosinophils % (A) 2 %; HCT 27.3 % (39.0-53.0); Lymphocytes # (A) 1.9 k/uL (1.0-4.8); Lymphocytes % (A) 11 %; MCHC 32.4 g/dL (31.0-37.0); MCV 86.6 fL (80.0-100.0); Mean Platelet Volume 9.1; Monocytes # (A) 0.7 k/uL (0-1.0); Monocytes % (A) 4 %; Neutrophils # (A) 14.2 k/uL (1.3-7.7); Neutrophils % (A) 82 %; Platelet Count 272 k/uL (150-450); RBC 3.16 m/uL (4.30-5.90); RDW 13.6 % (11.5-15.5); WBC 17.4 k/uL (3.8-10.6)
[2018-07-04 08:42] LABS: HGB 8.8 gm/dL (13.0-17.5)
[2018-07-04 08:43] LABS: Albumin 2.5 g/dL (3.5-5.0); Calcium 9.3 mg/dL (8.4-10.2); Potassium 4.5 mmol/L (3.5-5.1); Total Bilirubin 0.7 mg/dL (0.2-1.3); Total Protein 4.8 g/dL (6.3-8.2)
[2018-07-04 08:50] LABS: INR 1.1 (<1.2); Prothrombin Time 10.9 sec (9.0-12.0)
[2018-07-04 08:55] LABS: Partial Thromboplastin Time 20.4 sec (22.0-30.0)
[2018-07-04 09:06] VITALS: PULSE 115
[2018-07-04 09:09] LABS: Creatine Kinase MB 6.1 ng/mL (0.0-2.4)
[2018-07-04 09:13] LABS: Troponin I 0.414 ng/mL (0.000-0.034)
== END 2018-07-04 08:35 | disposition short-term general hospital (02) ==
LOC: EC 08:00
DX: M54.5 Low back pain (principal); L76.82 Other postprocedural complications of skin and subcutaneous tissue; R00.0 Tachycardia, unspecified; I95.9 Hypotension, unspecified; R61 Generalized hyperhidrosis; R53.83 Other fatigue; M25.512 Pain in left shoulder; M79.604 Pain in right leg; M79.605 Pain in left leg; R53.1 Weakness; E78.5 Hyperlipidemia, unspecified; I25.10 Atherosclerotic heart disease of native coronary artery without angina pectoris; I25.2 Old myocardial infarction; Z87.891 Personal history of nicotine dependence; Z79.02 Long term (current) use of antithrombotics/antiplatelets; Z79.899 Other long term (current) drug therapy; Z86.73 Personal history of transient ischemic attack (TIA), and cerebral infarction without residual deficits; Z95.1 Presence of aortocoronary bypass graft; Z86.79 Personal history of other diseases of the circulatory system
CPT/HCPCS: 36415; 93005; 86900; 86901; 80053; 82550; 82553; 83735; 84484; 85025; 85610; 85730; 86850; 86920; 99285; 96360; 96361 ×4; P9016